=== PATIENT | male | born 2000 | race Caucasian/White ===

== ENCOUNTER 2021-06-21 15:24 | Outpatient (REF) | payer BC, SELFPAY | END 2021-06-21 15:25 | disposition home or self-care (01) | LOC: LBN 15:24 | PROVIDERS: PCP Pediatrics; Visit Provider Physician Assistant | DX: J02.9 Acute pharyngitis, unspecified (principal) | CPT/HCPCS: 87070 ==

== ENCOUNTER 2022-05-07 11:01 | Day surgery (SDC) | payer BC, SELFPAY ==
[2022-05-07] VITALS (8 sets, daily range): BP systolic 132–144; BP diastolic 51–85; PULSE 58–74; RESP 11–16; TEMP 36–36.4; O2SAT 98–100; BMI 26.9
[2022-05-07] MEDS: Acetaminophen 500 MG TAB 1000 MG PO (12:05)
--- NOTE | 2022-05-07 12:22 | W.ANESPRE ---
General Info Date of Service Date Performed: 05/07/22 Height: 5 ft 11 in Weight: 87.7 kg Body Mass Index (BMI): 26.9 Surgical Procedure: Operation Date: 05/07/22 13:40 Proposed Procedure Side Surgeon p Tonsillectomy Horacio Peralta MD Meds Allergies and Home Medications Allergies Allergy/AdvReac Type Severity Reaction Status Date / Time No Known Allergies Allergy Verified 05/07/22 11:55 Home Medication Medication Instructions Recorded ibuprofen 800 mg tablet 800 mg PO Q8H PRN 06/21/21 Current Visit Medications: Current Medications Generic Name Dose Route Start Last Admin Trade Name Freq PRN Reason Stop Dose Admin Cefazolin Sodium/Dextrose 2 gm in 50 mls @ 100 mls/hr 05/07/22 06:00 Ancef Duplex IVPB 05/07/22 16:00 PREOP ULISES Tranexamic Acid 1,000 mg/ 60 mls @ 360 mls/hr 05/07/22 06:00 Sodium Chloride IVPB 05/07/22 16:00 PREOP ULISES IV Miscellaneous Supplies 1 each 05/07/22 06:00 Iv Access IV 05/16/22 23:59 DIRECTED ULISES Sodium Chloride 0 ml 05/07/22 06:00 Normal Saline Flush 10 Ml Syr IV 05/16/22 23:59 PRN PRN Sodium Chloride 0 ml 05/07/22 06:00 Normal Saline 10 Ml Vial IJ 05/16/22 23:59 DIRECTED PRN Sterile Water 0 ml 05/07/22 06:00 Water,Injection,Sterile 10 Ml Vial IJ 05/16/22 23:59 DIRECTED PRN PFSH Medical History Medical History History of peritonsillar abscess Peritonsillar abscess Surgical History Surgical History Hx of wisdom tooth extraction Tobacco Smoking/Tobacco Use Status: Never Alcohol Alcohol Intake: current Alcohol intake frequency: a few times a week Substance Use Substance use: Never Substance use type: does not use Details: alcohol: t-2, 3 beers Vital Signs and Lab Results Vital Signs Most Recent Vital Signs in EMR: Most Recent Vital Signs Temp Pulse Resp BP Pulse Ox 36.0 C L 74 16 136/69 98 05/07/22 12:10 05/07/22 12:10 05/07/22 12:10 05/07/22 12:10 05/07/22 12:10 Lab Results Blood Type / Crossmatch: No Data to Display Complete Blood Count: No Data to Display Complete Metabolic Panel: No Data to Display Liver Function Panel: No Data to Display Coagulation Panel: No Data to Display Cardiac Panel: No Data to Display Arterial Blood Gas: No Data to Display Venous Blood Gas: No Data to Display Pancreas Panel: No Data to Display Thyroid Panel: No Data to Display Infectious Disease: No Data to Display Blood Cultures: No Data to Display Toxicology Panel: No Data to Display Anesthesia Assessment and Plan Anesthesia History Personal History: No History of Anesthesia Complications Family History: No Family History of Anesthesia Complications Exercise Tolerance Exercise Tolerance: Metabolic Equivalents>4 Pertinent Negatives Pertinent Negatives: No Symptoms of GERD, No Major Cardiovascular Symptoms or Complaints and No Major Pulmonary Symptoms or Complaints Cardiac & Pulmonary Exam Cardiac Exam: Normal S1/S2 Heart Sounds Pulmonary Exam: Clear Bilateral Breath Sounds Implantable Cardiac Device Does patient have a Pacemaker or an ICD?: No Airway Exam Known Difficult Airway: No Mallampati Class: 1 Mouth Opening: Normal (> 3cm) Thyromental Distance: Greater than 3 cm Neck Range of Motion: Full ROM Neck Circumference: Normal Teeth Condition: Normal Dentition ASA Classification ASA Score: ASA 1 Emergency Case?: No NPO Status NPO Status: NPO Clears >2 hours, Solids >8 hours Anesthesia Plan Resuscitation Status: Full Code Anesthesia Technique: General Anesthesia Airway Planned: Endotracheal Tube Monitors Used: Standard Monitors
--- NOTE | 2022-05-07 14:08 | W.PM.DSUDISC ---
Date of service: 05/07/22 Time of Service: 14:09 Discharge Plan Disposition Patient Disposition: HOME Condition: Good Discharge Details Reason For Visit: Tonsillectomy Attending Provider: Horacio Peralta Primary Care Provider: Tejas Gipson III Home Meds and New Rx's Prescriptions: No Action ibuprofen 800 mg tablet 800 mg PO Q8H PRN Discharge Instructions Additional Instructions: My cell phone number is [phone]. Please call with any concerns or problems. If you cannot reach me, and you feel it is an emergency please go to the emergency room. Stand Alone Forms: ENT- T&A Instr. Kathryn Referrals: Horacio Peralta MD [ [facility] STAFF PHYSICIAN] - (1 month, please call for appointment prior to patient's departure) DS: Diagnosis Discharge Diagnosis (1) Chronic tonsillitis: Status: Acute (2) History of peritonsillar abscess:
[2022-05-07] MEDS: Lactated Ringers 1,000 ML 80 ML IV (14:14)
[2022-05-07] MEDS: ceFAZolin 2 GM/50 ML BAG IVPB (14:20)
[2022-05-07] MEDS: Bupivacaine 0.5% Pres-Free W/EPI 10 ML VIAL (14:27)
--- NOTE | 2022-05-07 14:30 | TONSIL_PTH ---
PATIENT: Bob Gore LOC: [facility] U#:[id number] AGE/SX: 22/M ROOM: RE05/07/[address]: Horacio Peralta MD : 2000 BED: DIS: 05/07/2022 SPEC #: [id number] RECD: 05/07/22 18:03 STATUS: YASMINE REQ #: [id number] DIANE: 05/07/22 14:[address]: Horacio Peralta DEPT: Surgical Specimen RECD BY: Ruby Stephenson ENTERED: 05/07/22 18:04 SP TYPE: TONSIL OTHR DR: Tejas Gipson III Tissues: 1 - TONSIL AGE 17 & OVER 2 - TONSIL AGE 17 & OVER Procedures: GROSS AND MICRO LEVEL 3 Comments: [id number]
--- NOTE | 2022-05-07 15:58 | ANES.POST_ITS ---
Postoperative Evaluation Date, Time and Location Date Performed: 05/07/22 Time Performed: 16:24 Patient Location: Day Surgery Unit Vital Signs Most Recent Imported Vital Signs: Most Recent Vital Signs Temp Pulse Resp BP Pulse Ox 36.0 C L 60 16 140/83 99 05/07/22 15:35 05/07/22 15:35 05/07/22 15:35 05/07/22 15:35 05/07/22 15:35 Pain Score Most Recent Pain Score: Most Recent Pain Score Pain Level 0 05/07/22 15:10 Assessment Mental Status: Awake (Alert & Oriented to Patient Baseline) Airway and Respiratory Function: Patent airway with normal (patient baseline) respiratory exam Cardiovascular Function: Hemodynamically Stable Hydration Status: Adequately Hydrated Nausea & Vomiting: No Nausea or Vomiting Pain: Pt. Denies Any Pain Peripheral Nerve Block: Patient did not receive a nerve block Teaching Patient Teaching: Advised to seek followup for the following concerns (See e xplanation) Concerns: Poorly Controlled Hypertension (Patient was consistently in the 140s systolic despite being under general anesthesia. I believe that his blood pressures should be followed by his PCP, discussed with patient and his mother. Questions answered. )
[2022-05-07] MEDS: Ibuprofen 600 MG TAB PO (16:06)
--- NOTE | 2022-05-07 16:31 | ROE_ITS ---
Date of service: 05/07/22 Time of Service: 16:31 Operative Note Operative Note DATE OF PROCEDURE: 05/07/22 PRE-OP DIAGNOSIS: Chronic tonsillitis, history of peritonsillar abscess POST-OP DIAGNOSIS: same PROCEDURE: Tonsillectomy SURGEON: Horacio Peralta ANESTHESIA TYPE: General LMA/ETT Refer to Anesthesia Record ESTIMATED BLOOD LOSS: 25 PATHOLOGY: other (Tonsils) COMPLICATIONS: None Patient was transported to: PACU Patient's condition: stable Indications: Patient with the above problems. Options were explained to the family regarding further management. He elected undergo tonsillectomy. Risks and benefits as well as the operative and postoperative courses were reviewed before surgery. Consent was reviewed. H&P was reviewed. There have been no changes. Risks of narcotics were detailed. Findings: 3+ tonsils, copious cryptic debris, significant fibrosis between the right tonsil and the tonsillar fossa. No residual abscess cavities. Procedure Description: After obtaining an adequate level of general endotracheal anesthesia the patient was positioned in supine position and prepped and draped in appropriate fashion. A Rafaela James mouthgag was carefully introduced into the oral cavity and opened to reveal the soft and hard palate which were examined revealing no evidence of an occult cleft palate. Adenoids were examined revealing no significant residual adenoids. Each tonsil was then infiltrated in a submucosal plane aroun d the tonsil with 0.5% Marcaine with 1-100,000 epinephrine. A 12 blade was used to incise mucosa along the cephalad end of the tonsil, and then a Edwin elevator used to disarticulate the tonsil from the superior tonsillar fossa. As mentioned above, a significant amount of fibrosis was encountered on the right. Once the superior pole had been disarticulated, a Bustamante blade was used to strip the tonsil free down to the inferior pole at which point time a tonsillar snare was used to amputate the tonsil from the tonsillar fossa. Once been accomplished bilaterally electrocautery suction tip catheter was used on 15 W coagulation to achieve relative hemostasis. The Rafaela-James mouthgag was relaxed and reopened revealing no further bleeding. Valsalva failed to induce further bleeding. The patient was then awakened and extubated by anesthesia and taken the recovery room in stable condition after Rafaela-James mouthgag was relaxed and removed. I was present throughout the entire case.
== END 2022-05-07 16:38 | disposition home or self-care (01) ==
PROVIDERS: PCP Pediatrics; Visit Provider Otolaryngology
PROC: (CPT 42826; principal; 2022-05-07 13:30)
DX: J35.01 Chronic tonsillitis (principal)
CPT/HCPCS: 42826; 88304; J0690; J1100; J2250; J2405; J2704; J3010